=== PATIENT | male | born 1945 | race Caucasian/White ===

== ENCOUNTER 2024-03-11 15:00 | Outpatient (CLI) | payer MEDICARE, SELFPAY ==
[2024-03-24 06:22] VITALS: BP 164/67; PULSE 50; RESP 18; TEMP 36.1; O2SAT 98; BMI 29.6
[2024-03-24] MEDS: Lactated Ringers 1,000 ML 15 ML IV (06:26)
[2024-03-24 06:40] VITALS: BP 164/67; PULSE 50; RESP 18; TEMP 36.1; O2SAT 98
--- NOTE | 2024-03-24 06:40 | PCM.PRE.AN2 ---
ASA Classification* ASA Classification ASA Classification: 3 Assessment & Plan Anesthesia* Anesthesia Assessment Anesthesia Assessment: Discussed sedation and/or anesthesia options, risks, benefits, and alternatives with patient/parents/legal guardian/POA. Questions invited. The patient/parents/legal guardian/POA seems to understand and agrees to proceed with anesthesia plan. Reviewed the physical assessment, medical history, allergy history and patient home medications list prior to surgery/procedure/anesthetic and documented any changes. Performed airway and anesthesia risk assessments. 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 When Was Last Pacemaker Check QUESTION #4 FULL TEXT: You/Your Family Experience fever (hyperthermia) with Anesthesia Last Oral Intake Last Oral intake: Last Oral Intake NPO since 04:30 03/24/24 06:22 Meds taken in AM with sips of Yes 03/24/24 06:22 water? Meds patient instructed to see medlist 03/24/24 06:22 take am of surgery PONV PONV - environmental field technician: PONV - environmental field technician Female No 03/15/24 13:39 HX of Motion Sickness No 03/15/24 13:39 HX of N/V After Surgery No 03/15/24 13:39 Non-Smoker Yes 03/15/24 13:39 Duration of Surgery greater Yes 03/15/24 13:39 than 60 minutes Number of Risk Factors 2 03/15/24 13:39 PONV Score Moderate Risk 03/15/24 13:39 Height & Weight Height & Weight: Anesthesia: Height & Weight Height 5 ft 9 in 03/24/24 06:22 Weight: 91 kg 03/24/24 06:22 Body Mass Index (BMI) 29.6 03/24/24 06:22 Respiratory Assessment Respiratory Assessment - environmental field technician: Respiratory Tract Infection Hx - environmental field technician Hx Respiratory Tract Infection No 03/15/24 13:39 STOP Sleep Apnea STOP Sleep Apnea - environmental field technician: STOP Sleep Apnea - environmental field technician Hx Hypertension Yes: CONTROLLED WITH MED 03/15/24 13:39 Hx Sleep Apnea No 03/15/24 13:39 CPAP BIPAP Do you snore loudly (louder No 03/15/24 13:39 than talking or can be heard Do you often feel tired/ No 03/15/24 13:39 fatigued/ sleepy during daytime? Has anyone observed you stop No 03/15/24 13:39 breathing during sleep? STOP Results Negative 03/15/24 13:39 QUESTION #5 FULL TEXT : Do you snore loudly (louder than talking or can be heard through closed doors)? 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 Specify any problems Hx of Preganancy in last 3 N/A 03/15/24 13:39 Months Nurse Filling Out Transfusion DSCHRIBER 03/15/24 13:39 & Questions: Date: 03/15/24 03/15/24 13:39 Time: 13:40 10/07/24 13:39 Patient unable to answer at this time (ie. confused, unrespo /Reproduction History /Reproductive History - environmental field technician: /Reproductive Hx- environmental field technician Hx Now No 03/15/24 13:39 Gestational Age (in weeks): EDC: Hx Hx Para Hx Section SAB No 03/15/24 13:39 Active Medications Active Medications: Current Medications Generic Name Dose Route Start Last Admin Trade Name Freq PRN Reason Stop Dose Admin Lactated Ringer's 1,000 mls @ 15 mls/hr 03/24/24 06:15 03/24/24 06:26 IV 03/29/24 19:34 15 mls/hr .Q48H CARYN Administration Protocol Clindamycin Phosphate 900 mg in 50 mls @ 75 mls/hr 03/24/24 07:00 Cleocin IV 03/24/24 07:39 PREOP ONE PFSH Medical History Wears glasses Wears dentures High cholesterol History of hiatal hernia Gastric reflux Former smoker History of stress test History of echocardiogram Cardiology follow-up encounter Hypertension Home Medications ?Medication ?Instructions ?Recorded ?Last Taken ?Type aspirin 81 mg tablet,delayed 81 mg PO QDAY 02/27/24 03/20/24 History release (Adult Aspirin Regimen) carvedilol 12.5 mg tablet 12.5 mg PO BID 02/27/24 03/24/24 History cyclobenzaprine 5 mg tablet 5 mg PO TID PRN muscle spasm 02/27/24 Unknown History hydralazine 10 mg tablet 20 mg PO TID 02/27/24 Unknown History omega-3 fatty acids-fish oil 360 1 cap PO QDAY 02/27/24 Unknown History mg-1,200 mg capsule (Fish Oil) pantoprazole 40 mg tablet,delayed 40 mg PO QDAY 02/27/24 03/24/24 History release rosuvastatin 20 mg tablet 20 mg PO QHS 02/27/24 Unknown History Allergy/AdvReac Type Severity Reaction Status Date / Time Penicillins (PCN) Allergy Mild Swelling Verified 03/24/24 06:16 Family History Father Diabetes Surgical History Hx of right cataract extraction Hx of left cataract extraction History of esophagogastroduodenoscopy (EGD) Hx of colonoscopy Hx of tonsillectomy Hx of inguinal hernia surgery Social History Smoking Status: Former smoker alcohol intake: never substance use type: does not use additional social history: denies vaping, denies marijuana use, denies edibles, takes aspirin every other day. denies ibuprofen use. denies family history of blood clotting disorders. Review of Systems (Anesthesia) ROS Narrative System reviewed and no additional complaints, except as documented.
--- NOTE | 2024-03-24 06:48 | HP.PCM.SX_ITS ---
HPI - General HPI Narrative BEAU PAGAN, is a 78 M who presents for brow lift. Current Encounter (DATE OF SURGERY H&P UPDATE): I saw and examined the patient this morning in pre-operative holding. We discussed risks and benefits of today's surgery and they would like to proceed. NO CHANGE in health history since last seen and evaluated. Ready to proceed with surgery. He has been cleared by his program associate and primary care physicians for surgery today. No history of eye problems or thyroid eye disease. [facility] Medical History Wears glasses Wears dentures High cholesterol History of hiatal hernia Gastric reflux Former smoker History of stress test History of echocardiogram Cardiology follow-up encounter Hypertension Home Medications ?Medication ?Instructions ?Recorded ?Last Taken ?Type aspirin 81 mg tablet,delayed 81 mg PO QDAY 02/27/24 03/20/24 History release (Adult Aspirin Regimen) carvedilol 12.5 mg tablet 12.5 mg PO BID 02/27/24 03/24/24 History cyclobenzaprine 5 mg tablet 5 mg PO TID PRN muscle spasm 02/27/24 Unknown History hydralazine 10 mg tablet 20 mg PO TID 02/27/24 Unknown History omega-3 fatty acids-fish oil 360 1 cap PO QDAY 02/27/24 Unknown History mg-1,200 mg capsule (Fish Oil) pantoprazole 40 mg tablet,delayed 40 mg PO QDAY 02/27/24 03/24/24 History release rosuvastatin 20 mg tablet 20 mg PO QHS 02/27/24 Unknown History Allergy/AdvReac Type Severity Reaction Status Date / Time Penicillins (PCN) Allergy Mild Swelling Verified 03/24/24 06:16 Family History Father Diabetes Surgical History Hx of right cataract extraction Hx of left cataract extraction History of esophagogastroduodenoscopy (EGD) Hx of colonoscopy Hx of tonsillectomy Hx of inguinal hernia surgery Social History Smoking Status: Former smoker alcohol intake: never substance use type: does not use additional social history: denies vaping, denies marijuana use, denies edibles, takes aspirin every other day. denies ibuprofen use. denies family history of blood clotting disorders. Vital Signs Vital Signs Vital Signs: 03/24/24 06:22 03/24/24 06:22 03/24/24 06:40 Temperature 97.0 F L 97.0 F L Temperature Source Temporal Pulse Rate 50 L 50 L Respiratory Rate 18 18 Respiratory Pattern Normal Blood Pressure 164/67 H 164/67 H Blood Pressure Mean 99 Blood Pressure Source Monitor Blood Pressure Position Semi-Fowlers Blood Pressure Location Left Arm Pulse Ox 98 98 Oxygen Delivery Method Room Air Weight Weight: 200 lb 9.93 oz Body Mass Index (BMI) 29.6 Physical Exam Narrative Pupils: PERRL EOM: EOM intact bilaterally Forehead: Chronic frontalis use with thick rhytids. Frontalis muscle overuse secondary to raising brows to improve vision given droopy brows and eyelids. Patient closed eyes and relaxed frontalis while placed my hand on his forehead and told him to relax. When he opened his eyes he had severe drooping of the brows and upper eyelid skin over the upper half of his visual flores. Eyebrows: Eyebrows are below the orbital rim bilaterally Eyelids: * MRD 1 was 4 mm * Good levator function (13 mm) * No lagophthalmos * Upper lid dermatochalasis bilaterally obstructing vertical gaze bilaterally secondary to the skin. The skin is hanging over his eyelashes and the lateral portions of his lid margin. His issue is both his brows and his eyelids Assessment & Plan Assessment/Plan (1) Dermatochalasis of both upper eyelids: (2) Brow ptosis, bilateral: PLAN: Plan I talked to the patient extensively about the brow lift portion of the procedure the last visit as well as this morning. One of the things that we have been discussing is direct brow lift from above the eyebrows with a brow pexy. He likes this option better (no mid forehead scar) and would like to proceed with this method for brow lift rather than the midforehead lift. I agree that this is good option, and this will avoid an unpredictable scar in the midforehead. He understands the risks of failure to obtain the desired result. I talked the patient extensively about the risks of surgery, including bleeding, infection, damage to surrounding structures, surgical site dehiscence and wound formation, need for wound care, need for repeat operations, DVT/PE, and the risks of anesthesia including . All of their questions were answered, and they agreed to proceed with surgery. UPDATE: Blood pressure too high this morning. 176 systolic on re-check. I will contact his PCP this morning about helping me get a more stable blood pressure for blepharoplasty Canceling case today.
== END 2024-03-11 23:00 | disposition home or self-care (01) ==
LOC: SDC 08-11 21:59
PROVIDERS: PCP Physician Assistant; Referring Provider Surgery Plastic and Reconstructive Surgery; Visit Provider Surgery Plastic and Reconstructive Surgery
DX: Z00.00 Encounter for general adult medical examination without abnormal findings (principal)